=== PATIENT | male | born 1960 | race African-American/Black ===

== ENCOUNTER 2019-08-22 16:19 | Inpatient (IN) | payer OTHER ==
[2019-08-22 17:45] VITALS: BMI 28.0
--- NOTE | 2019-08-22 18:36 | HP ---
COWS - Scale Resting Pulse: 0= [place] 80 or Below Sweatin= Chills/Flushing Restless Observation: 1= Difficult to Sit Still Pupil Size: 0= Normal to Room Light Bone or Joint Aches: 1= Mild Discomfort Runny Nose/ Eye Tearin= Runny Nose/Eyes GI Upset > 30mins: 0= None Tremor Observation: 0= None Yawning Observation: 1= 1-2x During Session Anxiety or Irritability: 2=Irritable/Anxious Goose Flesh Skin: 0=Smooth Skin COWS Score: 8 CIWA Score Nausea/Vomitin-No Nausea/No Vomiting Muscle Tremors: 2 Anxiety: 3 Agitation: 2 Paroxysmal Sweats: 1-Minimal Palms Moist Orientation: 1-Uncertain about Date Tacttile Disturbances: 1-Very Mild Itch/Numbness Auditory Disturbances: 0-None Visual Disturbances: 0-None Headache: 0-None Present CIWA-Ar Total Score: 10 - Admission Criteria OASAS Guidelines: Admission for Medically Managed Detox: Requires at least one of the followin. CIWA greater than 12 2. Seizures within the past 24 hours 3. Delirium tremens within the past 24 hours 4. Hallucinations within the past 24 hours 5. Acute intervention needed for co occurring medical disorder 6. Acute intervention needed for co occurring psychiatric disorder 7. Severe withdrawal that cannot be handled at a lower level of care (continued vomiting, continued diarrhea, abnormal vital signs) requiring intravenous medication and/or fluids 8. Patient presents the following: Acute intervention needed for co-occurring med or psych disorder Admission Criteria Met: Admission criteria met Admission ROS [facility] Chief Complaint: alcohol and heroin detox Allergies/Adverse Reactions: Allergies Allergy/AdvReac Type Severity Reaction Status Date / Time No Known Allergies Allergy Verified 08/22/19 17:39 History of Present Illness: Patient is a 59 yo AA male homeless with hx of alcohol, cocaine and heroin dependence is here seeking inpatient detox d/t withdrawal sx when he does not consume opioids or alcohol. Reports last detox one month ago at [facility]. Longest period of sobriety was ten years while in group home, has been unable to maintenance sobriety and keeps relapsing since release in 2008. Reports linked to [facility], last dose 20 mg, last medicated two weeks ago, dose pending verification. PMHX: denies. Psych: bipolar / depression on Depakote reports non adherent with meds. Hx of OD x 1 about eight months ago. Denies seizures or DTS. Exam Limitations: No Limitations - Ebola screening Have you traveled outside of the country in the last 21 days: No (N) Have you had contact with anyone from an Ebola affected area: No Do you have a fever: No - Review of Systems Constitutional: Loss of Appetite, Changes in sleep EENT: reports: Nose Congestion Respiratory: reports: No Symptoms reported Cardiac: reports: No Symptoms Reported GI: reports: No Symptoms Reported : reports: No Symptoms Reported Musculoskeletal: reports: Joint Pain Integumentary: reports: No Symptoms Reported Endocrine: reports: Increased Thirst Hematology: reports: No Symptoms Reported Psychiatric: reports: Orientated x3, Anxious Other Systems: Reviewed and Negative Patient History - Patient Medical History Hx Anemia: No Hx Asthma: No Hx Chronic Obstructive Pulmonary Disease (COPD): No Hx Cancer: No Hx Cardiac Disorders: No Hx Congestive Heart Failure: No Hx Hypertension: No Hx Hypercholesterolemia: No Hx Pacemaker: No HX Cerebrovascular Accident: No Hx Seizures: No Hx Dementia: No Hx Diabetes: No Hx Gastrointestinal Disorders: No Hx Liver Disease: No Hx Genitourinary Disorders: No Hx Sexually Transmitted Disorders: No Hx Renal Disease (ESRD): No Hx Thyroid Disease: No Hx Human Immunodeficiency Virus (HIV): No Hx Hepatitis C: No Hx Depression: Yes Hx Bipolar Disorder: Yes - Patient Surgical History Past Surgical History: No - PPD History Previous Implant?: No Documented Results: Positive w/o proof Results: chest x-ray PPD to be Administered?: No - Smoking Cessation Smoking history: Current every day smoker Have you smoked in the past 12 months: Yes Aproximately how many cigarettes per day: 20 Hx Chewing Tobacco Use: No Initiated information on smoking cessation: Yes 'Breaking Loose' booklet given: 08/22/19 - Substance & Tx. History Hx Alcohol Use: Yes Hx Substance Use: Yes Substance Use Type: Alcohol, Cocaine, Heroin Hx Substance Use Treatment: Yes ([facility] One month Ago) - Substances abused Heroin Substance route: Inhalation Frequency: Daily Amount used: 15 BAGS Age of first use: 15 Date of last use: 08/22/19 Crack Substance route: Smoking Frequency: Daily Amount used: $100-150$ Age of first use: 28 Date of last use: 08/22/19 Alcohol Substance route: Oral Frequency: Daily Amount used: 1 QT THAI CHAMPAGNE Age of first use: 17 Date of last use: 08/22/19 Admission Physical Exam [facility] - Vital Signs Vital Signs: Vital Signs - 24 hr 08/22/19 17:41 Temperature 98.0 F Pulse Rate 75 Respiratory 16 Rate Blood Pressure 134/72 - Physical General Appearance: Yes: Appropriately Dressed, Irritable, Anxious HEENTM: Yes: EOMI, Hearing grossly Normal, Normal ENT Inspection, Normocephalic , Normal Voice, MONICA, Pharynx Normal, Tm's normal Respiratory: Yes: Chest Non-Tender, Lungs Clear, Normal Breath Sounds, No Respiratory Distress, No Accessory Muscle Use Neck: Yes: Within Normal Limits Breast: Yes: Breast Exam Deferred Cardiology: Yes: Regular Rhythm, Regular Rate Abdominal: Yes: Normal Bowel Sounds, Non Tender, Flat, Soft Genitourinary: Yes: Within Normal Limits Back: Yes: Normal Inspection Musculoskeletal: Yes: full range of Motion, Gait Steady, Pelvis Stable Extremities: Yes: Normal Capillary Refill, Normal Inspection, Normal Range of Motion, Non-Tender Neurological: Yes: senior sql server dba II-XII NML intact, Fully Oriented, Alert, Motor Strength 5/5, Depressed Affect Integumentary: Yes: Normal Color, Warm, Diaphoresis Lymphatic: Yes: Within Normal Limits - Diagnostic (1) Alcohol dependence with withdrawal, uncomplicated Current Visit: Yes Status: Acute (2) Opioid dependence on agonist therapy Current Visit: Yes Status: Acute Comment: reports on [facility] on 20mg last medicated two weeks ago, dose pending verification (3) Cocaine dependence Current Visit: Yes Status: Acute Qualifiers: Substance use status: uncomplicated Qualified Code(s): F14.20 - Cocaine dependence, uncomplicated (4) Psychiatric disorder Current Visit: Yes Status: Suspected Comment: psych consult order Cleared for Admission [facility] - Detox or Rehab [facility] Level of Care: Medically Managed Detox Regimen/Protocol: Librium Breathalyzer - Breathalyzer Breathalyzer: 0 Urine Drug Screen - Test Device Lot number: [id number] Expiration date: 05/09/21 - Control Is test valid?: Yes - Results Drug screen NEGATIVE: No Urine drug screen results: COCO-Cocaine, FEN-Fentanyl, MOP-Opiates, MTD-Methadone , BUP-Suboxone Inpatient Rehab Admission - Rehab Decision to Admit Inpatient rehab admission?: No
[2019-08-22] MEDS ORDERED: BISMUTH SUBSALICYLATE 524 MG/30 ML UD PO PRN (18:44)
[2019-08-22] MEDS ORDERED: ACETAMINOPHEN 325 MG TABLET (FP) PO PRN ×2 (18:44)
[2019-08-22] MEDS ORDERED: chlordiazePOXIDE HCL 25 MG CAPSULE PO PRN (18:44)
[2019-08-22] MEDS ORDERED: IBUPROFEN 400 MG TABLET (FP) PO PRN (18:44)
[2019-08-22] MEDS ORDERED: MAGNESIUM CITRATE 300 ML BOTTLE PO PRN (18:44)
[2019-08-22] MEDS ORDERED: MAGNESIUM HYDROX 2400MG/30ML ORAL SUSPENSION 30 ML CUP PO PRN (18:44)
[2019-08-22] MEDS ORDERED: MELATONIN 5 MG TABLETS PO PRN (18:44)
[2019-08-22] MEDS ORDERED: hydrOXYzine PAMOATE 25 MG CAPSULE (FP) PO PRN (18:44)
[2019-08-22] MEDS ORDERED: METHOCARBAMOL 500 MG TABLET PO PRN (18:44)
[2019-08-22] MEDS ORDERED: MENTHOL/PHENOL 1 EACH UD MM PRN (18:44)
[2019-08-22] MEDS ORDERED: MAG HYDROX/AL HYDROX/SIMETH 30 ML UNIT-DOSE CUP PO PRN (18:44)
[2019-08-22] MEDS ORDERED: METHADONE HCL 10 MG TABLET (FOR DETOX USE ONLY) PO ONE (20:00)
[2019-08-22] MEDS: chlordiazePOXIDE HCL 25 MG CAPSULE PO SCH (22:59)
[2019-08-22] MEDS: THIAMINE HCL 100 MG TABLET (FP) PO SCH (22:59)
[2019-08-23] MEDS: chlordiazePOXIDE HCL 25 MG CAPSULE PO SCH ×5 (05:24→22:18)
[2019-08-23 09:40] LABS: HEMATOCRIT 41.1 % (35.4-49); HEMOGLOBIN 13.2 GM/dL (11.7-16.9); MCH 27.1 pg (25.7-33.7); MCHC 32.1 g/dl (32.0-35.9); MEAN CELL VOLUME 84.5 fl (80-96); MEAN PLT VOLUME 9.4 fl (7.5-11.1); PLATELET COUNT 206 K/MM3 (134-434); RBC 4.87 M/mm3 (4.00-5.60); RDW 14.5 % (11.9-15.9); WHITE BLOOD COUNT 4.6 K/mm3 (4.0-10.0)
[2019-08-23 09:56] LABS: ALBUMIN 3.1 g/dl (3.4-5.0); BILIRUBIN,TOTAL 0.2 mg/dL (0.2-1); BLOOD UREA NITROGEN 19.4 mg/dL (7-18); CALCIUM 8.7 mg/dL (8.5-10.1); CREATININE 0.9 mg/dL (0.55-1.3); POTASSIUM 4.2 mmol/L (3.5-5.1); TOT PROT 6.3 g/dl (6.4-8.2)
[2019-08-23] MEDS: PRENATAL VITAMINS W/ FOLIC ACID TABLET (FP) PO SCH (10:26)
[2019-08-23] MEDS: NICOTINE 14 MG/24 HOURS TOPICAL PATCH TD SCH (10:27)
[2019-08-23] MEDS ORDERED: NALOXONE HCL 0.4 MG/ML VIAL IM PRN (10:47)
[2019-08-23] MEDS ORDERED: METHADONE HCL 10 MG TABLET (FOR DETOX USE ONLY) PO ONE (10:47)
[2019-08-23] MEDS ORDERED: cloNIDine HCL 0.1 MG TABLET PO PRN (10:47)
--- NOTE | 2019-08-23 11:23 | PN ---
[facility] CIWA - CIWA Score Nausea/Vomitin-Mild Nausea/No Vomiting Muscle Tremors: 3 Anxiety: 4-Mod. Anxious/Guarded Agitation: 3 Paroxysmal Sweats: 2 Orientation: 0-Oriented Tacttile Disturbances: 0-None Auditory Disturbances: 0-None Visual Disturbances: 0-None Headache: 0-None Present CIWA-Ar Total Score: 13 BHS COWS - Scale Resting Pulse: 1= [place] 81-100 Sweatin= Chills/Flushing Restless Observation: 0= Sits Still Pupil Size: 0= Normal to Room Light Bone or Joint Aches: 1= Mild Discomfort Runny Nose/ Eye Tearin= Nasal Congestion GI Upset > 30mins: 1= Stomach Cramp Tremor Observation of Outstretched Hands: 2= Slight Tremor Visible Yawning Observation: 1= 1-2x During Session Anxiety or Irritability: 2=Irritable/Anxious Goose Flesh Skin: 3=Piloerection COWS Score: 13 S Progress Note (SOAP) Subjective: 59 years old male admitted on 08/22/19 for alcohol and opiate withdrawal sx management treated with librium detox regimen addition methadone detox regimen added due to positive opiate based urine tox upon admission irritable restlessness anxiety tremor Objective: 08/23/19 11:25 Vital Signs Temperature 96.7 F L 08/23/19 09:21 Pulse Rate 88 08/23/19 09:21 Respiratory Rate 18 08/23/19 09:21 Blood Pressure 143/79 08/23/19 09:21 O2 Sat by Pulse Oximetry (%) Laboratory Last Values WBC 4.6 K/mm3 (4.0-10.0) 08/23/19 08:20 RBC 4.87 M/mm3 (4.00-5.60) 08/23/19 08:20 Hgb 13.2 GM/dL (11.7-16.9) 08/23/19 08:20 Hct 41.1 % (35.4-49) 08/23/19 08:20 MCV 84.5 fl (80-96) 08/23/19 08:20 MCH 27.1 pg (25.7-33.7) 08/23/19 08:20 MCHC 32.1 g/dl (32.0-35.9) 08/23/19 08:20 RDW 14.5 % (11.9-15.9) 08/23/19 08:20 Plt Count 206 K/MM3 (134-434) 08/23/19 08:20 MPV 9.4 fl (7.5-11.1) 08/23/19 08:20 Sodium 142 mmol/L (136-145) 08/23/19 08:20 Potassium 4.2 mmol/L (3.5-5.1) 08/23/19 08:20 Chloride 110 mmol/L (98-107) H 08/23/19 08:20 Carbon Dioxide 26 mmol/L (21-32) 08/23/19 08:20 Anion Gap 6 MMOL/L (8-16) L 08/23/19 08:20 BUN 19.4 mg/dL (7-18) H 08/23/19 08:20 Creatinine 0.9 mg/dL (0.55-1.3) 08/23/19 08:20 Est GFR (CKD-EPI)AfAm 108.73 08/23/19 08:20 Est GFR (CKD-EPI)NonAf 93.82 08/23/19 08:20 Random Glucose 98 mg/dL (74-106) 08/23/19 08:20 Calcium 8.7 mg/dL (8.5-10.1) 08/23/19 08:20 Total Bilirubin 0.2 mg/dL (0.2-1) 08/23/19 08:20 AST 24 U/L (15-37) 08/23/19 08:20 ALT 42 U/L (13-61) 08/23/19 08:20 Alkaline Phosphatase 52 U/L (45-117) 08/23/19 08:20 Total Protein 6.3 g/dl (6.4-8.2) L 08/23/19 08:20 Albumin 3.1 g/dl (3.4-5.0) L 08/23/19 08:20 Valproic Acid 6.7 ug/mL (50-100) L 08/23/19 08:20 RPR Titer Nonreactive (NONREACTIVE) 08/23/19 08:20 lab noted Assessment: 08/23/19 11:25 alcohol and opiate withdrawal sx Plan: continue librium and begin methadone detox regimen
--- NOTE | 2019-08-23 12:43 | EKG ---
Test Reason : Blood Pressure : / mmHG Vent. Rate : 071 BPM Atrial Rate : 071 BPM P-R Int : 136 ms QRS Dur : 086 ms QT Int : 410 ms P-R-T Axes : 066 054 031 degrees QTc Int : 445 ms NORMAL SINUS RHYTHM NORMAL ECG NO PREVIOUS ECGS AVAILABLE Confirmed by MARY BURROWS MD ([id number]) on 08/23/2019 12:43:19 PM Referred By: Confirmed By:MARY BURROWS MD
[2019-08-23] MEDS: NICOTINE POLACRILEX 2 MG GUM BUC PRN ×2 (13:01→15:44)
--- NOTE | 2019-08-23 15:01 | CONSULT ---
[facility] Psychiatric Consult - Data Date of interview: 08/23/19 Admission source: [facility] Identifying data: Patient is a 59 year old single male, father of three, unemployed, homeless, and is supported by [facility]. This is one of multiple admissions for patient. Patient admitted to for alcohol, cocaine, and opiate dependence. Substance Abuse History: - Smoking Cessation. Smoking history: Current every day smoker. Have you smoked in the past 12 months: Yes. Aproximately how many cigarettes per day: 20. Hx Chewing Tobacco Use: No. Initiated information on smoking cessation: Yes. 'Breaking Loose' booklet given: 08/22/19. - Substance & Tx. History. Hx Alcohol Use: Yes. Hx Substance Use: Yes. Substance Use Type : Alcohol, Cocaine, Heroin. Hx Substance Use Treatment: Yes ([facility] One month Ago). - Substances abused. Heroin. Substance route: Inhalation. Frequency: Daily. Amount used: 15 BAGS. Age of first use: 15. Date of last use: 08/22/19. Crack. Substance route: Smoking. Frequency: Daily. Amount used: $100-150$. Age of first use: 28. Date of last use: . Alcohol. Substance route: Oral. Frequency: Daily. Amount used: 1 QT OF MAHI. Age of first use: 17. Date of last use: 08/22/19 Medical History: Denies. Psychiatric History: Patient denies history of psychiatric hospitalization and suicide attempt. Mr. Bar first received psychiatric treatment in 1999 while in correction and was diagnosed with Bipolar disorder and prescribed Seroquel + Depakote + Remeron. Reports receiving treatment until he was released from incarceration in 2008. After release from [facility] he continued psychiatric treatment at [facility] in [place], [place] up until three months ago. Patient reports taking seroquel + Depakote + Remeron but has no recollection of his doses. Reports being off his medications for two monhts. Patient requesting to resume medications. No psychosis, manic, or depressive symptoms noted. Physical/Sexual Abuse/Trauma History: denies. Mental Status Exam - Mental Status Exam Alert and Oriented to: Time, Place, Person Cognitive Function: Good Patient Appearance: Well Groomed Mood: Euthymic Affect: Mood Congruent Patient Behavior: Cooperative Speech Pattern: Appropriate Voice Loudness: Normal Thought Process: Goal Oriented Thought Disorder: Not Present Hallucinations: Denies Suicidal Ideation: Denies Homicidal Ideation: Denies Insight/Judgement: Poor Sleep: Fair Appetite: Fair Muscle strength/Tone: Normal Gait/Station: Normal Psychiatric Findings - Problem List ([place] 1, 2,3) (1) Mood disorder Current Visit: Yes Status: Chronic (2) Alcohol dependence with withdrawal, uncomplicated Current Visit: Yes Status: Acute (3) Cocaine dependence Current Visit: Yes Status: Acute Qualifiers: Substance use status: uncomplicated Qualified Code(s): F14.20 - Cocaine dependence, uncomplicated (4) Opioid dependence on agonist therapy Current Visit: Yes Status: Acute Comment: reports on [facility] on 20mg last medicated two weeks ago, dose pending verification - Initial Treatment Plan Initial Treatment Plan: Psychoeducation provided. Will order Seroquel 100mg. Benefits and side effects discussed. Verbal consent given.
[2019-08-23] MEDS: THIAMINE HCL 100 MG TABLET (FP) PO SCH (22:17)
[2019-08-23] MEDS: QUEtiapine FUMARATE 100 MG TABLET (FP) PO SCH (22:17)
[2019-08-24] MEDS: chlordiazePOXIDE HCL 25 MG CAPSULE PO SCH ×4 (05:27→22:37)
[2019-08-24] MEDS: NICOTINE POLACRILEX 2 MG GUM BUC PRN ×2 (05:27→14:57)
[2019-08-24] MEDS: PRENATAL VITAMINS W/ FOLIC ACID TABLET (FP) PO SCH (09:52)
[2019-08-24] MEDS: NICOTINE 14 MG/24 HOURS TOPICAL PATCH TD SCH (09:53)
[2019-08-24] MEDS ORDERED: METHADONE HCL 5 MG TABLET (FOR DETOX USE ONLY) PO ONE (10:00)
[2019-08-24] MEDS: THIAMINE HCL 100 MG TABLET (FP) PO SCH (22:36)
[2019-08-24] MEDS: QUEtiapine FUMARATE 100 MG TABLET (FP) PO SCH (22:36)
[2019-08-25] MEDS ORDERED: chlordiazePOXIDE HCL 10 MG CAPSULE PO PRN
[2019-08-25] MEDS: chlordiazePOXIDE HCL 10 MG CAPSULE PO SCH ×4 (06:02→22:40)
[2019-08-25] MEDS ORDERED: METHADONE HCL 10 MG TABLET (FOR DETOX USE ONLY) PO ONE (10:00)
[2019-08-25] MEDS: NICOTINE 14 MG/24 HOURS TOPICAL PATCH TD SCH (10:43)
[2019-08-25] MEDS: PRENATAL VITAMINS W/ FOLIC ACID TABLET (FP) PO SCH (10:43)
--- NOTE | 2019-08-25 13:24 | PN ---
S CIWA - CIWA Score Nausea/Vomitin-No Nausea/No Vomiting Muscle Tremors: None Anxiety: 3 Agitation: 0-Normal Activity Paroxysmal Sweats: 3 Orientation: 0-Oriented Tacttile Disturbances: 0-None Auditory Disturbances: 0-None Visual Disturbances: 0-None Headache: 2-Mild CIWA-Ar Total Score: 8 S COWS - Scale Resting Pulse: 0= [place] 80 or Below Sweatin= Beads of Sweat on Face Restless Observation: 1= Difficult to Sit Still Pupil Size: 0= Normal to Room Light Bone or Joint Aches: 2= Severe Diffuse Aches Runny Nose/ Eye Tearin= None GI Upset > 30mins: 0= None Tremor Observation of Outstretched Hands: 0= None Yawning Observation: 1= 1-2x During Session Anxiety or Irritability: 2=Irritable/Anxious Goose Flesh Skin: 0=Smooth Skin COWS Score: 9 S Progress Note (SOAP) Subjective: c/o sweats, anxiety, headache, and muscle pain. Objective: 08/25/19 13:24 Vital Signs 08/25/19 08/25/19 06:42 09:19 Temperature 96.3 F L 97.9 F Pulse Rate 59 L 90 Respiratory 18 20 Rate Blood Pressure 125/72 110/65 Laboratory Last Values WBC 4.6 K/mm3 (4.0-10.0) 08/23/19 08:20 RBC 4.87 M/mm3 (4.00-5.60) 08/23/19 08:20 Hgb 13.2 GM/dL (11.7-16.9) 08/23/19 08:20 Hct 41.1 % (35.4-49) 08/23/19 08:20 MCV 84.5 fl (80-96) 08/23/19 08:20 MCH 27.1 pg (25.7-33.7) 08/23/19 08:20 MCHC 32.1 g/dl (32.0-35.9) 08/23/19 08:20 RDW 14.5 % (11.9-15.9) 08/23/19 08:20 Plt Count 206 K/MM3 (134-434) 08/23/19 08:20 MPV 9.4 fl (7.5-11.1) 08/23/19 08:20 Sodium 142 mmol/L (136-145) 08/23/19 08:20 Potassium 4.2 mmol/L (3.5-5.1) 08/23/19 08:20 Chloride 110 mmol/L (98-107) H 08/23/19 08:20 Carbon Dioxide 26 mmol/L (21-32) 08/23/19 08:20 Anion Gap 6 MMOL/L (8-16) L 08/23/19 08:20 BUN 19.4 mg/dL (7-18) H 08/23/19 08:20 Creatinine 0.9 mg/dL (0.55-1.3) 08/23/19 08:20 Est GFR (CKD-EPI)AfAm 108.73 08/23/19 08:20 Est GFR (CKD-EPI)NonAf 93.82 08/23/19 08:20 Random Glucose 98 mg/dL (74-106) 08/23/19 08:20 Calcium 8.7 mg/dL (8.5-10.1) 08/23/19 08:20 Total Bilirubin 0.2 mg/dL (0.2-1) 08/23/19 08:20 AST 24 U/L (15-37) 08/23/19 08:20 ALT 42 U/L (13-61) 08/23/19 08:20 Alkaline Phosphatase 52 U/L (45-117) 08/23/19 08:20 Total Protein 6.3 g/dl (6.4-8.2) L 08/23/19 08:20 Albumin 3.1 g/dl (3.4-5.0) L 08/23/19 08:20 Valproic Acid 6.7 ug/mL (50-100) L 08/23/19 08:20 RPR Titer Nonreactive (NONREACTIVE) 08/23/19 08:20 Labs noted. Assessment: 08/25/19 13:24 AOX3, in no acute respiratory distress. Full ROM, ambulating in the unit. Withdrawal symptoms. Plan: continue detox.
[2019-08-25] MEDS: NICOTINE POLACRILEX 2 MG GUM BUC PRN (17:39)
[2019-08-25] MEDS: QUEtiapine FUMARATE 100 MG TABLET (FP) PO SCH (22:40)
[2019-08-25] MEDS: THIAMINE HCL 100 MG TABLET (FP) PO SCH (22:40)
[2019-08-26] MEDS ORDERED: METHADONE HCL 5 MG TABLET (FOR DETOX USE ONLY) PO ONE (06:00)
[2019-08-26] MEDS: chlordiazePOXIDE HCL 10 MG CAPSULE PO SCH ×2 (06:22→18:03)
[2019-08-26] MEDS: PRENATAL VITAMINS W/ FOLIC ACID TABLET (FP) PO SCH (10:33)
[2019-08-26] MEDS: NICOTINE 14 MG/24 HOURS TOPICAL PATCH TD SCH (10:33)
[2019-08-26] MEDS: NICOTINE POLACRILEX 2 MG GUM BUC PRN ×2 (10:34→18:03)
--- NOTE | 2019-08-26 14:17 | PN ---
[facility] CIWA - CIWA Score Nausea/Vomitin-No Nausea/No Vomiting Muscle Tremors: 2 Anxiety: 2 Agitation: 2 Paroxysmal Sweats: 1-Minimal Palms Moist Orientation: 0-Oriented Tacttile Disturbances: 0-None Auditory Disturbances: 0-None Visual Disturbances: 0-None Headache: 0-None Present CIWA-Ar Total Score: 7 BHS COWS - Scale Resting Pulse: 0= [place] 80 or Below Sweatin= Chills/Flushing Restless Observation: 0= Sits Still Pupil Size: 0= Normal to Room Light Bone or Joint Aches: 1= Mild Discomfort Runny Nose/ Eye Tearin= Nasal Congestion GI Upset > 30mins: 1= Stomach Cramp Tremor Observation of Outstretched Hands: 1= Tremor [place], Not Seen Yawning Observation: 1= 1-2x During Session Anxiety or Irritability: 1=Feels Anxious/Irritable Goose Flesh Skin: 0=Smooth Skin COWS Score: 7 [facility] Progress Note (SOAP) Subjective: 59 years old male admitted on 08/22/19 for alcohol and opiate withdrawal sx management treated with librium and methadone detox regimen\ feeling better less tremor slept better at night mild body aches Objective: 08/26/19 14:16 Vital Signs Temperature 96.1 F L 08/26/19 09:51 Pulse Rate 54 L 08/26/19 09:51 Respiratory Rate 18 08/26/19 09:51 Blood Pressure 135/81 08/26/19 09:51 O2 Sat by Pulse Oximetry (%) Laboratory Last Values WBC 4.6 K/mm3 (4.0-10.0) 08/23/19 08:20 RBC 4.87 M/mm3 (4.00-5.60) 08/23/19 08:20 Hgb 13.2 GM/dL (11.7-16.9) 08/23/19 08:20 Hct 41.1 % (35.4-49) 08/23/19 08:20 MCV 84.5 fl (80-96) 08/23/19 08:20 MCH 27.1 pg (25.7-33.7) 08/23/19 08:20 MCHC 32.1 g/dl (32.0-35.9) 08/23/19 08:20 RDW 14.5 % (11.9-15.9) 08/23/19 08:20 Plt Count 206 K/MM3 (134-434) 08/23/19 08:20 MPV 9.4 fl (7.5-11.1) 08/23/19 08:20 Sodium 142 mmol/L (136-145) 08/23/19 08:20 Potassium 4.2 mmol/L (3.5-5.1) 08/23/19 08:20 Chloride 110 mmol/L (98-107) H 08/23/19 08:20 Carbon Dioxide 26 mmol/L (21-32) 08/23/19 08:20 Anion Gap 6 MMOL/L (8-16) L 08/23/19 08:20 BUN 19.4 mg/dL (7-18) H 08/23/19 08:20 Creatinine 0.9 mg/dL (0.55-1.3) 08/23/19 08:20 Est GFR (CKD-EPI)AfAm 108.73 08/23/19 08:20 Est GFR (CKD-EPI)NonAf 93.82 08/23/19 08:20 Random Glucose 98 mg/dL (74-106) 08/23/19 08:20 Calcium 8.7 mg/dL (8.5-10.1) 08/23/19 08:20 Total Bilirubin 0.2 mg/dL (0.2-1) 08/23/19 08:20 AST 24 U/L (15-37) 08/23/19 08:20 ALT 42 U/L (13-61) 08/23/19 08:20 Alkaline Phosphatase 52 U/L (45-117) 08/23/19 08:20 Total Protein 6.3 g/dl (6.4-8.2) L 08/23/19 08:20 Albumin 3.1 g/dl (3.4-5.0) L 08/23/19 08:20 Valproic Acid 6.7 ug/mL (50-100) L 08/23/19 08:20 RPR Titer Nonreactive (NONREACTIVE) 08/23/19 08:20 lab noted Assessment: 08/26/19 14:17 alcohol and opiate withdrawal sx Plan: continue librium and methadone detox regimen
[2019-08-26] MEDS: THIAMINE HCL 100 MG TABLET (FP) PO SCH (22:38)
[2019-08-26] MEDS: QUEtiapine FUMARATE 100 MG TABLET (FP) PO SCH (22:38)
[2019-08-27] MEDS ORDERED: chlordiazePOXIDE HCL 10 MG CAPSULE PO ONE (05:00)
[2019-08-27] MEDS: NICOTINE POLACRILEX 2 MG GUM BUC PRN (07:52)
[2019-08-27 09:10] VITALS: PULSE 88; TEMP 98
[2019-08-27 09:11] VITALS: BP 128/78
[2019-08-27] MEDS: NICOTINE 14 MG/24 HOURS TOPICAL PATCH TD SCH (09:32)
[2019-08-27] MEDS: PRENATAL VITAMINS W/ FOLIC ACID TABLET (FP) PO SCH (09:32)
--- NOTE | 2019-08-27 09:58 | DS ---
[facility] Detox Discharge Summary Admission Date: 08/22/19 Discharge Date: 08/27/19 - History Present History: Alcohol Dependence, Opioid Dependence Additional Comments: 59 years old male admitted on 08/22/19 for alcohol and opiate withdrawal sx management treated with librium and methadone detox regimen patient is alert oriented x 3 cardiac S1S2 regular rate rhythm respiratory clear lung bilaterally on auscultation skin warm and dry Pertinent Past History: strong recommend medication assisted treatment program and bulk picker narcan from pharmacy - Physical Exam Results Vital Signs: Vital Signs Temperature 98.0 F 08/27/19 09:09 Pulse Rate 88 08/27/19 09:09 Respiratory Rate 18 08/27/19 09:09 Blood Pressure 128/78 08/27/19 09:09 O2 Sat by Pulse Oximetry (%) Pertinent Admission Physical Exam Findings: alcohol and opiate withdrawal sx Laboratory Last Values WBC 4.6 K/mm3 (4.0-10.0) 08/23/19 08:20 RBC 4.87 M/mm3 (4.00-5.60) 08/23/19 08:20 Hgb 13.2 GM/dL (11.7-16.9) 08/23/19 08:20 Hct 41.1 % (35.4-49) 08/23/19 08:20 MCV 84.5 fl (80-96) 08/23/19 08:20 MCH 27.1 pg (25.7-33.7) 08/23/19 08:20 MCHC 32.1 g/dl (32.0-35.9) 08/23/19 08:20 RDW 14.5 % (11.9-15.9) 08/23/19 08:20 Plt Count 206 K/MM3 (134-434) 08/23/19 08:20 MPV 9.4 fl (7.5-11.1) 08/23/19 08:20 Sodium 142 mmol/L (136-145) 08/23/19 08:20 Potassium 4.2 mmol/L (3.5-5.1) 08/23/19 08:20 Chloride 110 mmol/L (98-107) H 08/23/19 08:20 Carbon Dioxide 26 mmol/L (21-32) 08/23/19 08:20 Anion Gap 6 MMOL/L (8-16) L 08/23/19 08:20 BUN 19.4 mg/dL (7-18) H 08/23/19 08:20 Creatinine 0.9 mg/dL (0.55-1.3) 08/23/19 08:20 Est GFR (CKD-EPI)AfAm 108.73 08/23/19 08:20 Est GFR (CKD-EPI)NonAf 93.82 08/23/19 08:20 Random Glucose 98 mg/dL (74-106) 08/23/19 08:20 Calcium 8.7 mg/dL (8.5-10.1) 08/23/19 08:20 Total Bilirubin 0.2 mg/dL (0.2-1) 08/23/19 08:20 AST 24 U/L (15-37) 08/23/19 08:20 ALT 42 U/L (13-61) 08/23/19 08:20 Alkaline Phosphatase 52 U/L (45-117) 08/23/19 08:20 Total Protein 6.3 g/dl (6.4-8.2) L 08/23/19 08:20 Albumin 3.1 g/dl (3.4-5.0) L 08/23/19 08:20 Valproic Acid 6.7 ug/mL (50-100) L 08/23/19 08:20 RPR Titer Nonreactive (NONREACTIVE) 08/23/19 08:20 lab noted - Treatment Hospital Course: Detox Protocol Followed, Detoxed Safely, Responded well, Discharged Condition Good, Rehab Referral Accepted Patient has Accepted a Rehab Referral to: medication assisted treatment program - Medication Discharge Medications: Ambulatory Orders Divalproex Sodium [Depakote] 250 mg PO BID 08/22/19 Quetiapine Fumarate [Seroquel -] 100 mg PO HS 08/22/19 Naloxone HCl [Narcan] 4 mg NS ASDIR PRN #1 spray 08/27/19 - Diagnosis (1) Substance induced mood disorder Status: Suspected (2) Alcohol dependence with withdrawal, uncomplicated Status: Acute (3) Opioid dependence on agonist therapy Status: Acute - AMA Did Patient Leave Against Medical Advice: No
== END 2019-08-27 09:18 | disposition home or self-care (01) | DRG 773 ==
LOC: YASAS 16:19 → Y6N 19:48 → Y3N 19:54
PROVIDERS: ADMIT Allergy & Immunology; ATTEND Allergy & Immunology
PROC: HZ2ZZZZ Detoxification Services for Substance Abuse Treatment (ICD-10-PCS; principal; 2019-08-22)
DX: F10.230 Alcohol dependence with withdrawal, uncomplicated (principal); F11.23 Opioid dependence with withdrawal; F14.20 Cocaine dependence, uncomplicated; F17.210 Nicotine dependence, cigarettes, uncomplicated; F31.9 Bipolar disorder, unspecified; F19.24 Other psychoactive substance dependence with psychoactive substance-induced mood disorder
CPT/HCPCS: 36415; 71046-TC-FY; 80053; 80164; 85027; 86593; 93005; 93010